=== PATIENT | female | born 1985 | race Caucasian/White ===

== ENCOUNTER → 2017-01-05 | Outpatient (CLI) | payer BC ==
[~2017-01-05] MED LIST: PRENTAB65 PO
[2017-01-05 15:05] LABS: URINE APPEARANCE CLEAR (CLEAR); URINE BILIRUBIN NEG (NEG); URINE COLOR YELLOW; URINE EPITHELIAL CELL AUTO 0-5 /lpf (0-5); URINE NITRITE NEG (NEG); URINE PH 5.5 (4.5-7.5); URINE SPECIFIC GRAVITY 1.023 (1.000-1.030); UROBILINOGEN NEG (NEG)
[2017-01-05 15:10] LABS: MANUAL MICROSCOPIC REQUIRED? NO; REVIEW REQ? NO
== END | disposition home or self-care (01) ==
LOC: C.LABSPEC 13:30
PROVIDERS: ATTEND Obstetrics & Gynecology
DX: Z34.80 Encounter for supervision of other normal pregnancy, unspecified trimester (principal)

== ENCOUNTER → 2017-01-10 | Outpatient (CLI) | payer BC ==
[~2017-01-10] MED LIST changes: +DOCU-94 PO; +FERR1TAB13 PO
[2017-01-10 17:18] LABS: BASO % 0.1 %; BASO ABS # 0.01 K/uL (0-0.2); COMPLETE YES; EOS % 0.1 %; HEMATOCRIT 35.8 % (37-47); IG% 0.5 %; LYMPH % 17.7 %; LYMPH ABS # 1.52 K/uL (1.2-3.4); MEAN CELL VOLUME 90.6 fL (80-100); MEAN CORPUSCULAR HEMOGLOBIN 30.6 pg (25-34); MEAN CORPUSCULAR HGB CONC 33.8 g/dl (32-36); MEAN PLATELET VOLUME 9.6 fL (7.4-10.4); MONO % 7.4 %; NEUT % 74.2 %; PLATELET COUNT 245 K/uL (130-400); RED BLOOD COUNT 3.95 M/uL (4.2-5.4)
[2017-01-13 01:09] LABS: CHLAMYDIA TRACH RNA*** NOT DETECTED (NOT DETECTED); GC (NEIS GONORRHOEAE)RNA** NOT DETECTED (NOT DETECTED)
== END | disposition home or self-care (01) ==
LOC: C.LAB1850 16:02
PROVIDERS: ATTEND Obstetrics & Gynecology
DX: Z34.80 Encounter for supervision of other normal pregnancy, unspecified trimester (principal)

== ENCOUNTER → 2017-02-16 | Outpatient (CLI) | payer BC ==
[2017-02-16 12:51] LABS: GTGD 50 Grams
== END | disposition home or self-care (01) ==
LOC: C.LAB1850 11:01
PROVIDERS: ATTEND Obstetrics & Gynecology
DX: Z34.81 Encounter for supervision of other normal pregnancy, first trimester (principal)

== ENCOUNTER → 2017-04-13 | Outpatient (CLI) | payer BC ==
[2017-04-13 10:09] LABS: HEMATOCRIT 31.7 % (37-47)
== END | disposition home or self-care (01) ==
LOC: C.LAB1850 09:34
PROVIDERS: ATTEND Obstetrics & Gynecology
DX: Z34.82 Encounter for supervision of other normal pregnancy, second trimester (principal); Z3A.00 Weeks of gestation of pregnancy not specified

== ENCOUNTER → 2017-05-03 | Outpatient (CLI) | payer BC ==
[2017-05-03 18:49] LABS: URINE APPEARANCE CLEAR (CLEAR); URINE BILIRUBIN NEG (NEG); URINE COLOR YELLOW; URINE EPITHELIAL CELL AUTO >30 /lpf (0-5); URINE NITRITE NEG (NEG); URINE PH 5.5 (4.5-7.5); URINE SPECIFIC GRAVITY 1.025 (1.000-1.030); UROBILINOGEN NEG (NEG)
[2017-05-03 18:52] LABS: MANUAL MICROSCOPIC REQUIRED? NO; REVIEW REQ? NO
== END | disposition home or self-care (01) ==
LOC: C.LABSPEC 17:54
PROVIDERS: ATTEND Obstetrics & Gynecology
DX: Z34.82 Encounter for supervision of other normal pregnancy, second trimester (principal); Z3A.00 Weeks of gestation of pregnancy not specified

== ENCOUNTER → 2017-05-18 | Outpatient (CLI) | payer BC ==
[2017-05-18 20:42] LABS: GTGD 50 Grams
== END | disposition home or self-care (01) ==
LOC: C.LAB1850 16:04
PROVIDERS: ATTEND Obstetrics & Gynecology
DX: Z34.82 Encounter for supervision of other normal pregnancy, second trimester (principal); Z3A.00 Weeks of gestation of pregnancy not specified

== ENCOUNTER → 2017-06-28 | Outpatient (CLI) | payer BC | END | disposition home or self-care (01) | LOC: C.LABSPEC 17:28 | PROVIDERS: ATTEND Obstetrics & Gynecology | DX: Z34.83 Encounter for supervision of other normal pregnancy, third trimester (principal); Z3A.00 Weeks of gestation of pregnancy not specified ==

== ENCOUNTER 2017-07-19 20:04 | Inpatient (IN) | payer BC ==
[~2017-07-19] VITALS: Ht 157.5 cm; Wt 74.8 kg
[2017-07-19] MEDS ORDERED: LACTATED RINGER'S 1000ML 1,000 ML IV PRN (20:23)
[2017-07-19] MEDS ORDERED: LACTATED RINGER'S 1000ML 1,000 ML IV SCH (20:23)
[2017-07-19] MEDS ORDERED: FENTANYL 2MCG/ML ROPIV 1.25MG/ML 100ML BAG EPI ONE (20:40)
[2017-07-19] MEDS ORDERED: EpHEDrine SULFATE INJ 50 MG/ML AMP ONE (20:40)
[2017-07-19] MEDS ORDERED: BUPIVACAINE 0.25% 30 ML VIAL ONE (20:40)
[2017-07-19] MEDS ORDERED: FENTANYL CITRATE INJ 50 MCG/1 ML 2 ML VIAL ONE (20:41)
[2017-07-19 20:55] LABS: HEMATOCRIT 30.5 % (37-47); MEAN CELL VOLUME 82.2 fL (80-100); MEAN CORPUSCULAR HEMOGLOBIN 25.3 pg (25-34); MEAN CORPUSCULAR HGB CONC 30.8 g/dl (32-36); MEAN PLATELET VOLUME 9.2 fL (7.4-10.4); PLATELET COUNT 214 K/uL (130-400); RED BLOOD COUNT 3.71 M/uL (4.2-5.4); WHITE BLOOD COUNT 7.08 K/uL (4.8-10.8)
[2017-07-19 21:07] VITALS: Ht 157.5 cm; Wt 74.8 kg
[2017-07-19] MEDS ORDERED: PRENTAB65 PO (21:08)
[2017-07-19] MEDS ORDERED: LACTATED RINGER'S 1000ML 500 ML IV PRN ×2 (21:58→23:11)
[2017-07-19] MEDS ORDERED: NALOXONE HCL INJ 1 MG in SODIUM CHLORIDE 0.9% 1000ML 1,000 ML IV PRN (21:58)
[2017-07-19] MEDS ORDERED: NALOXONE HCL INJ 0.4 MG/1 ML VIAL/CARP IV PRN (22:00)
[2017-07-19] MEDS ORDERED: EpHEDrine SULFATE INJ 50 MG/ML AMP IV PRN (22:00)
[2017-07-19] MEDS ORDERED: NALBUPHINE HCL INJ 10 MG/ML AMP IV PRN (22:00)
[2017-07-19] MEDS ORDERED: FENTANYL 2MCG/ML ROPIV 1.25MG/ML 100ML BAG EPI PRN (22:00)
[2017-07-19] MEDS ORDERED: DiphenhydrAMINE HCL 50 MG/ML VIAL IV PRN (22:00)
[2017-07-19] MEDS ORDERED: OXYTOCIN 30 UNITS/500ML NSS IV PRN (23:15)
[2017-07-20] VITALS (8 sets, daily range): BP systolic 86–108; BP diastolic 54–71; PULSE 76–86; TEMP 36.7–37
[2017-07-20] MEDS ORDERED: SUPERCREAM 0.870 % 15GM JAR EXT PRN (03:00)
[2017-07-20] MEDS ORDERED: OXYTOCIN 30 UNITS/500ML NSS IV PRN (03:00)
[2017-07-20] MEDS ORDERED: ACETAMINOPHEN 325 MG TAB PO PRN (03:00)
[2017-07-20] MEDS ORDERED: OXYCODONE/ACETAMINOPHEN 5-325 TAB PO PRN (03:00)
[2017-07-20] MEDS ORDERED: LANOLIN OINT EXT PRN ×2 (03:00)
[2017-07-20] MEDS ORDERED: BENZOCAINE 20% AER SPR 82.5 GM CAN EXT PRN (03:00)
[2017-07-20] MEDS ORDERED: ACETAMINOPHEN/CODEINE 300/30MG TAB PO PRN ×2 (03:00)
[2017-07-20] MEDS ORDERED: HYDROCORTISONE ACETATE 25 MG SUPP PR PRN (03:00)
--- NOTE | 2017-07-20 03:30 | DELIVERY SUMMARY ---
DATE OF OPERATION: 07/20/2017 ADMIT DIAGNOSES: 1. Intrauterine at 39-4/7 weeks. 2. Early labor. POSTOPERATIVE DIAGNOSES: Same. PROCEDURE: 1. Epidural anesthesia. 2. Amniotomy. 3. Normal spontaneous vaginal delivery. 4. Second degree perineal laceration with repair. SURGEON: Kamala Melendez MD. ANESTHESIA: Epidural. ESTIMATED BLOOD LOSS: 400 mL. DESCRIPTION OF PROCEDURE: The patient presented to labor and delivery with contractions. She was found to be 4 cm dilated in the office earlier and was now 5-6 cm dilated. She wished an epidural, so she was admitted and epidural anesthesia was given. Amniotomy was performed for small amount of clear fluid. She progressed spontaneously to complete, complete and +1 station and pushed with good effort to deliver a viable female infant in left occiput posterior presentation that rotated to left occiput anterior. The anterior shoulder was then immediately delivered with suprapubic pressure and McRobert's maneuver and the body followed easily. There was no nuchal cord. The baby was vigorous. The nares and mouth were bulb suctioned and infant was placed on maternal abdomen where the cord was clamped and cut at 1 minute of life. Cord blood and segment were obtained. Placenta was delivered spontaneously intact with a 3-vessel cord. Cervix, sulci and rectum were examined and found to be intact. The second degree perineal laceration was repaired with 3-0 Vicryl in normal standard fashion. Apgars were 8 and 9. Hemostasis was obtained with dilute Pitocin and fundal massage. Estimated blood loss 400 mL. Mother and baby doing well at the end of the delivery. I attest to the content of the Intraoperative Record and any orders documented therein. Any exception s are noted below.
[2017-07-20] MEDS ORDERED: ACETAMINOPHEN 325 MG TAB ONE (03:45)
[2017-07-20] MEDS ORDERED: NURSING VERBAL MED ORDER ONE (05:15)
[2017-07-20] MEDS ORDERED: LACTATED RINGER'S 1000ML 1,000 ML IV PRN (06:15)
--- NOTE | 2017-07-20 06:53 | Anesthesia Procedure Note ---
Anesthesia Epidural Removal Nt Date & Time Jul 20, 2017 at 06:53 Vital Signs Pain Intensity: 0.0 Vital Signs Past 12 Hours Date Time Temp Pulse Resp B/P (MAP) Pulse Ox O2 Delivery O2 Flow Rate FiO2 07/20/17 06:47 80 18 106/64 07/20/17 06:35 79 16 86/54 07/20/17 05:45 36.8 18 96/54 Notes Mental Status: alert / awake / arousable, participated in evaluation Nausea / Vomiting: adequately controlled Pain: adequately controlled Airway Patency, RR, SpO2: stable & adequate BP & HR: stable & adequate Hydration State: stable & adequate Neuraxial Anesthesia: was administered, sensory block is resolved Anesthetic Complications: no major complications apparent, pt satisfied with anesthetic care Epidural: removed without complications, with tip intact
[2017-07-20] MEDS: IBUPROFEN 600 MG TAB PO PRN ×4 (08:21→20:19)
[2017-07-20] MEDS: PRENATAL VITAMIN TAB PO SCH (08:22)
[2017-07-20] MEDS: DOCUSATE SODIUM 100 MG CAP PO SCH ×2 (08:22→20:18)
--- NOTE | 2017-07-20 10:14 | Discharge Instructions ---
Discharge Instructions Date of Service Jul 20, 2017. Admission Reason for Admission: Check Labor Discharge Discharge Diagnosis / Problem: Spontaneous Vaginal Delivery Discharge Goals Goal(s): Routine recovery after delivery Medications Continue Dispensed Medications: supercream, dermaplast, tucks, lansinoh Activity Recommendations Activity Limitations: per Instructions/Follow-up section . Instructions / Follow-Up Instructions / Follow-Up ACTIVITY RECOMMENDATIONS: * Gradual return to full activity over the next 2-3 weeks. * No lifting - nothing heavier than baby over the next 2-3 weeks. * Do not engage in vigorous exercise, sexual activity or sports until cleared by your physician. * Do not drive or operate any motorized equipment until cleared by your physician. * You may shower/bathe daily. MEDICATIONS: For discomfort or pain, you may use Acetaminophen (Tylenol), Ibuprofen (Advil), or Naproxen (Aleve) following the package directions. For constipation you may use Colace following the package directions. BREAST CARE: If you are not breast feeding: * Wear a supportive bra 24 hours a day for one to two weeks. * Avoid stimulating your breasts and nipples as much as possible during the first few weeks after delivery. * When taking a shower, have the warm water hit your back, not breasts. * When your breasts feel full, apply ice packs. Usually three to four times a day helps ease the discomfort. * Take a mild pain medication (Tylenol / Motrin) when you are uncomfortable. If breast feeding: * Use breast milk to lubricate nipples. Lansinoh cream may be used for sore nipples. You do not need to remove cream prior to breast feeding. If using a different brand of cream, check the label for directions regarding removal of cream prior to nursing. * Wear a supportive bra. * If having problems with breasts or breast feeding, call a mortgage consultant or your health care provider. EPISIOTOMY CARE: After delivery, if you have an episiotomy (stitches), the following steps will ease discomfort and aid healing. * For the first 24 hours after delivery, place ice packs next to your episiotomy to help reduce swelling. * After the first 24 hour-period, sitz baths, either portable or in the tub, are suggested. A shower with a shower arm sprayed over the episiotomy may be comforting. * Marlin care should be done after each voiding and bowel movement. Squirt warm water from a plastic bottle over the perineum (region of the body between the anus and urinary opening) and pat dry. * Use Dermoplast to ease discomfort. Shake container. [place] directly over the episiotomy. Place a Tucks on a clean sanitary pad next to your episiotomy. SPECIAL CARE INSTRUCTIONS: When you are discharged from the hospital, it is important for you to follow the instructions listed below: * During the first week at home, you should be able to care for yourself and your baby. In addition, the usual light household activities are encouraged. * Limit your activities to the way you feel. Do not try to clean the house or move furniture. Be sensible. * If you actively engage in sports and have done so up until the time of your delivery, you may resume these activities as soon as you feel able. This may take up to one month or even longer. Use good judgment. * Continue to take your vitamins for at least six weeks after the of your baby. * Your diet need not be limited unless you were on a special diet before your delivery. Breast-feeding mothers need around 2500 calories per day and at least 64-80 ounces of fluid per day (8 to 10 glasses). * You should eat foods from the four major food groups. Crash diets or fad diets are to be avoided. Eating lean meats, fresh fruits and vegetables, low-fat dairy products, high fiber foods and a regular exercise program, will help you get back to your pre- weight without putting your health at risk. * Constipation is sometimes a problem after delivery. Take a mild laxative as needed. If breast feeding, Milk of Magnesia is acceptable to use. You may use a suppository or Fleets enema if no episiotomy. * A daily shower or tub bath is suggested. Be sure to thoroughly and gently dry the perineum. * A bloody vaginal discharge will usually continue until around four weeks post . A small amount of bleeding may continue for as long as six weeks. Vaginal discharge changes from the bright red bleeding after delivery to pink then brownish and finally yellowish-pink before becoming white and disappearing. * Bleeding may increase with activity. Your first period may come in 4-8 weeks. If you are breast feeding, your period may be delayed even longer. * [place] (sex) can begin whenever both you and your partner feel comfortable and do not have any form of genital infection. It is recommended that you wait at least six weeks for internal and external healing to occur. If you have questions, please talk to your health care practitioner. A condom should be used to prevent infection and . * Foreplay, gentle intercourse and lubrication is very important the first several times to prevent pain. A water-based lubricant such as K-Y jelly or Astroglide may be used. * If you have RH negative blood and your baby is RH positive, you will receive RHOGAM by injection prior to discharge. The nurse will give you a card to keep with you that has the date and place that you received RHOGAM after delivery. * During your care, you had a Rubella screen done to check for the presence of rubella antibodies in your blood. If your test was negative, you will receive a Rubella vaccine prior to discharge. This vaccine may cause a fever, soreness at the injection site and flu-like symptoms. If these symptoms persist, notify your health care practitioner. is not advised for one month after a Rubella vaccine. * Verbalizes understanding of car seat law as reviewed with patient nursing. * Car Seat hand-out given and reviewed with patient by nursing. * Shaken baby information reviewed with patient by nursing. Call you doctor if: * Heavy bleeding (saturating several pads an hour) or passing clots the size of your fist. * A fever >101 degrees F (38.3 degrees C) on two occasions four hours apart and /or chills. * Unusual pain in the pelvic or vaginal areas. * "Baby Blues" lasting longer than two weeks. If you have any questions or concerns, call your health care practitioner at . FOLLOW UP VISIT: * Please call the office at to schedule a 6 week examination. It is important you keep this appointment. It is important for you to make arrangements for either yearly or twice yearly check-ups thereafter. Current Hospital Diet Patient's current hospital diet: Regular OB Diet Discharge Diet Recommended Diet: Regular OB Diet Pending Studies Studies pending at discharge: no Medical Emergencies . Who to Call and When: Medical Emergencies: If at any time you feel your situation is an emergency, please call 911 immediately. . Non-Emergent Contact Non-Emergency issues call your: Primary Care Provider . . "Provider Documentation" section prepared by Dorothy Phelan. . VTE Core Measure Inpt VTE Proph given/why not?: Treatment not indicated
[2017-07-21] MEDS: IBUPROFEN 600 MG TAB PO PRN ×3 (04:41→12:21)
[2017-07-21 06:36] LABS: HEMATOCRIT 23.2 % (37-47)
--- NOTE | 2017-07-21 07:25 | Progress Note ---
Subjective Jul 21, 2017. Subjective conversation w/ patient, physical exam, chart review, lab review Ambulation: ambulating normally Voiding: no voiding problems Passing Gas: Yes Diet Tolerance: Regular Diet Lochia: Moderate Feeding Type: Bottle Feeding Pain: controlled Review of Systems Constitutional: + problem reported (moderate lightheadedness upon standing. Denies syncope.) Respiratory: No shortness of breath Female : No dysuria Objective Vital Signs Date Time Temp Pulse Resp B/P (MAP) Pulse Ox O2 Delivery O2 Flow Rate FiO2 07/20/17 23:50 36.8 76 20 97/63 (74) Room Air 07/20/17 23:50 Room Air 07/20/17 20:15 36.8 82 20 108/70 (83) Room Air 07/20/17 15:15 Room Air 07/20/17 15:15 36.8 81 18 101/67 (78) Room Air 07/20/17 11:50 37.0 79 16 104/71 (82) Room Air 07/20/17 08:00 36.7 86 20 92/61 (71) Room Air 07/20/17 08:00 Room Air Physical Exam General Appearance: WELL-APPEARING, WD/WN, NO APPARENT DISTRESS Respiratory/Chest: lungs clear, normal breath sounds, no respiratory distress Cardiovascular: regular rate, rhythm, no gallop Abdomen: normal bowel sounds, soft Fundus: Firm, Non-Tender, Relation to Umbilicus (1 below U) Extremities: non-tender, normal inspection Laboratory Results Last 24 Hours Test 07/21/17 06:17 Hemoglobin 7.0 g/dL Hematocrit 23.2 % Assessment and Plan Post- Day#: 1 Continue Routine Care: Resident Physician Supervision Note: I interviewed and examined the patient. Discussed with Dr. Phelan and agree with findings and plan as documented in the note. Any exceptions or clarifications are listed here: [None] Documented By: Denise Salazar Ailyn 32 yof delivered vaginally 07/20 at 0200 at 39 4/7 wks, 2nd deg lac with EBL 400. A+/GBS-/RI Hgb 9.4, 7.0 today. Reports some lightheadedness upon standing, denies syncope. Will recommend additional dose of iron with PNV at home. Pt doing well clinically. On the fence as to whether she wants to stay or go, counselled on dc instructions. Continue routine care, monitor lochia, encourage ambulation, control pain with tylenol/motrin. BRIANNA PHELAN FMR PGY 1. Resident Tracking Resident Involvement: Resident Care Provided Care Provided: OB Delivery
[2017-07-21] MEDS ORDERED: FERR1TAB13 PO (07:26)
[2017-07-21] MEDS ORDERED: DOCU-94 PO (07:26)
[2017-07-21] MEDS: PRENATAL VITAMIN TAB PO SCH (08:27)
[2017-07-21] MEDS: DOCUSATE SODIUM 100 MG CAP PO SCH (08:27)
[2017-07-21 08:30] VITALS: BP 95/65; PULSE 84; TEMP 36.5
[2017-07-21] MEDS ORDERED: DIPHTHERIA/TETANUS/PERTUSSIS 0.5 ML SYR/VIAL IM. ONE (09:00)
[2017-07-21 16:24] VITALS: BP_DIAS 65; PULSE 84; TEMP 36.5
== END 2017-07-21 16:24 | disposition home or self-care (01) | DRG 775 ==
LOC: C.OPB 20:04 → C.LD 20:04 → C.OPB 20:24 → C.LD 20:24 → C.OBG 07-20 05:51
PROVIDERS: ADMIT Obstetrics & Gynecology; ATTEND Obstetrics & Gynecology
PROC: 0KQM0ZZ Repair Perineum Muscle, Open Approach (ICD-10-PCS; principal; 2017-07-20)
PROC: 10E0XZZ Delivery of Products of Conception, External Approach (ICD-10-PCS; principal; 2017-07-20)
PROC: 10907ZC Drainage of Amniotic Fluid, Therapeutic from Products of Conception, Via Natural or Artificial Opening (ICD-10-PCS; principal; 2017-07-20)
DX: O70.1 Second degree perineal laceration during delivery (principal); Z37.0 Single live birth; Z3A.39 39 weeks gestation of pregnancy

== ENCOUNTER → 2017-08-27 | Outpatient (CLI) | payer BC ==
[~2017-08-27] MED LIST changes: -DOCU-94 PO
== END | disposition home or self-care (01) ==
LOC: C.PAPS 11:28
PROVIDERS: ATTEND Obstetrics & Gynecology
DX: Z01.411 Encounter for gynecological examination (general) (routine) with abnormal findings (principal); R87.610 Atypical squamous cells of undetermined significance on cytologic smear of cervix (ASC-US)